=== PATIENT | male | born 1970 | race African-American/Black ===

== ENCOUNTER 2020-10-11 08:22 | Day surgery (SDC) | payer OTHER ==
[2020-10-11] MEDS ORDERED: Ringers Lactate 1,000 ML IV ONE (09:14)
--- NOTE | 2020-10-11 09:52 | ENDO RPT ---
[address], [address] COLONOSCOPY PROCEDURE REPORT EXAM DATE: 10/11/2020 PATIENT NAME: Payam Flynn MR #: [id number] BIRTHDATE: 1970 ATTENDING: Ronaldo Leahy Dr STATUS: outpatient LUMBER TRIMMER: Elham Yusuf RN and Ayla Mooney INDICATIONS: The patient is a 50 yr old Male here for a colonoscopy due to hematochezia, change in bowel habits, and constipation PROCEDURE PERFORMED: Colonoscopy with snare polypectomy MEDICATIONS: Per Anesthesia. ESTIMATED BLOOD LOSS: None CONSENT: The patient understands the risks and benefits of the procedure and understands that these risks include, but are not limited to: sedation, allergic reaction, infection, perforation and/or bleeding. Alternative means of evaluation and treatment include, among others: physical exam, x-rays, and/or surgical intervention. The patient elects to proceed with this endoscopic procedure. DESCRIPTION OF PROCEDURE: During intra-op preparation period all mechanical medical equipment was checked for proper function. Hand hygiene and appropriate measures for infection prevention was taken. Procedure, possible complications, alternatives including, but not limited to possibility of bleeding, perforation, tear, infection, sepsis, need for surgery, need for blood transfusion, were explained to the patient. After the risks, benefits and alternatives of the procedure were thoroughly explained, Informed consent was verified, confirmed and timeout was successfully executed by the treatment team. The patient was placed in the left lateral position. A digital rectal exam was performed and revealed external hemorrhoids. After appropriate level of anesthesia, the scope was passed. The EG-[id number] ([id number]) and [id number] ([id number]) endoscope was introduced through the anus and advanced to the terminal ileum which was intubated for a short distance. The quality of the prep was good. The instrument was then slowly withdrawn as the colon was fully examined. Scope withdrawal time was 8 minutes. COLON FINDINGS: A polypoid shaped flat polyp measuring 2.1 cm in size with a mucous cap was found in the transverse colon. A polypectomy was performed with a cold snare. The resection was complete, the polyp tissue was completely retrieved and sent to histology. Small internal and external hemorrhoids were found. Retroflexed views revealed small hemorrhoids. The scope was then completely withdrawn from the patient and the procedure terminated. ADVERSE EVENTS: There were no complications. IMPRESSIONS: 1. 2.1 cm flat multi-lobulated polyp with mucus cap in the transverse colon; polypectomy in a piecemeal fashion with a cold snare 2. Small internal and external hemorrhoids 3. Intubation to terminal ileum RECOMMENDATIONS: 1. await biopsy results 2. avoid NSAIDS for 2 weeks RECALL: Return in 3 month(s) for Colonoscopy. Ronaldo Leahy Dr eSigned: Ronaldo Leahy Dr 10/11/2020 9:52 AM cc: CPT CODES: ICD9 CODES: 1. 455.5 External hemorrhoids with other complication 2. 211.3 Benign neoplasm of colon PATIENT NAME: Payam FlynnMark MR#: [id number]
[2020-10-11] MEDS ORDERED: LIDOCAINE 1% MPF 2 ML AMPULE ONE (09:58)
[2020-10-11] MEDS ORDERED: propofoL 200 MG/20 ML VIAL IV ONE ×3 (09:58)
[2020-10-11] MEDS ORDERED: GLYCOPYRROLATE 0.2 MG/ML SYR ONE (09:58)
[2020-10-11 10:15] VITALS: TEMP 96.8
[2020-10-11 10:18] VITALS: BP 124/87; O2SAT 97
== END 2020-10-11 10:17 | disposition home or self-care (01) ==
LOC: OR 08:22
PROVIDERS: ATTEND Internal Medicine Gastroenterology
PROC: 0DBL8ZX Excision of Transverse Colon, Via Natural or Artificial Opening Endoscopic, Diagnostic (ICD-10-PCS; principal; 2020-10-11 09:30)
DX: D12.3 Benign neoplasm of transverse colon (principal); K92.1 Melena; K59.00 Constipation, unspecified; K64.4 Residual hemorrhoidal skin tags; K64.8 Other hemorrhoids; Z20.822 Contact with and (suspected) exposure to COVID-19
CPT/HCPCS: 88305; 45385; J2704 ×2; J7120